=== PATIENT | male | born 1990 | race Caucasian/White ===

== ENCOUNTER 2020-10-20 04:50 | Emergency (ER) | payer OTHER, SELFPAY ==
--- NOTE | ~2020-10-20 | XR_ITS ---
XR lumbar spine 2-3V DATE: 10/20/2020 06:15 INDICATION: Fall in bathtub. Lower back pain. TECHNIQUE: AP, lateral and coned lateral lumbosacral views COMPARISON: None FINDINGS: There is minimal levoscoliosis of the lumbar spine. Normal alignment of the lumbar spine. N o fracture or spondylolisthesis. There is moderate loss of height at L4-5 interspace. Remaining lumbar and lumbosacral interspaces are well preserved. Lumbar pedicles are intact. The sacroiliac joints appear intact. IMPRESSION: Mild levoscoliosis Moderate loss of height at L4-5 interspace No fracture or spondylolisthesis is detected Reviewed, dictated and finalized at location A.
[2020-10-20 04:49] VITALS: BP 133/116; PULSE 113; RESP 18; TEMP 36.3; O2SAT 100
--- NOTE | 2020-10-20 05:07 | ED.GENADULT ---
HPI - General Adult General Chief complaint: Fall Stated complaint: fell in bathtub- 6 hours ago, muscle spasms History of Present Illness HPI narrative: Patient is a 30-year-old male who identifies as female that presents ER after falling in the bathtub and being unable to get herself out. Patient reports she has been having low back pain for several weeks and has had some limitations to mobility because of this. She was bending down in the bathtub and was not strong enough to get back up thus falling onto her back. She did not strike her head or lose consciousness. No new numbness or tingling in the lower extremities. Prior to that she would get occasional radiation down her left leg with some tingling in the toes. She is undergoing physical therapy. She reports she has been seen at an outside hospital with negative x-rays and prescription for NSAIDs and muscle relaxers. Patient was prescribed Flexeril on 08/28/2020 and diazepam on 10/16/2020. Patient reports pain is left low back. No midline discomfort. Was suffering from spasms while at home. Related Data Home Medications Medication Instructions Recorded Confirmed bupropion HCl PO 10/20/20 cyclobenzaprine mg 10/20/20 diazepam 10/20/20 docusate sodium PO 10/20/20 duloxetine mg PO 10/20/20 estradiol mg 10/20/20 gabapentin 10/20/20 spironolactone 10/20/20 valacyclovir 10/20/20 Allergies Allergy/AdvReac Type Severity Reaction Status Date / Time Penicillins Allergy Unknown RASH Verified 10/20/20 05:16 Review of Systems Review of Systems: All systems reviewed & are unremarkable except as noted in HPI and below Constitutional: Constitutional: Denies chills, Denies fever(s) and Reports weakness Gastrointestinal: Gastrointestinal: Denies nausea and Denies vomiting Musculoskeletal: Musculoskeletal: Reports back pain, Denies arthralgias, Denies joint swelling and Reports muscle cramps Neurologic: Denies syncope, Denies focal weakness and Reports numbness (Intermittent) [facility] Past Medical History Medical History (Updated 10/20/20 @ 07:12 by Benny Kearney MD) Depression Fibromyalgia Surgical History Surgical History (Updated 10/20/20 @ 05:29 by Benny Kearney MD) No pertinent past surgical history Social History Social History (Updated 10/20/20 @ 05:29 by Benny Kearney MD) Alcohol intake: current Gender identity (if verbalized by the patient): Female Exam Narrative: GENERAL: Well-appearing, morbidly obese, and in no acute distress. HEAD: Normocephalic, atraumatic. ENT: Mucous membranes moist. CHEST: Clear to auscultation. No respiratory distress. HEART: Tachycardic and regular. Normal peripheral pulses. Back: No midline tenderness of thoracic or lumbar spine. Mild left lumbar paraspinal muscular discomfort without palpable spasm. Square indentations from patient's bath mat going from inferior most aspect of the scapula bilaterally down to the buttock. EXTREMITIES: Normal range of motion. No edema. Sensation intact. SKIN: Warm, dry, no rash. NEURO: Alert and oriented x3. Course Course Emergency Course: Pain improving with Toradol and Valium. Up and ambulatory. Discharge home. Vital Signs Vital signs: Vital Signs Temperature 97.4 F L 10/20/20 04:49 Pulse Rate 113 H 10/20/20 04:49 Respiratory Rate 18 10/20/20 04:49 Blood Pressure 133/116 H 10/20/20 04:49 Pulse Oximetry 100 10/20/20 04:49 Temperature 97.4 F L 10/20/20 04:49 Pulse Rate 111 H 10/20/20 05:50 Respiratory Rate 19 10/20/20 05:50 Blood Pressure 118/74 10/20/20 05:50 Pulse Oximetry 98 10/20/20 05:50 Medical Decision Making Vital Signs Vital Signs: Vital Signs Temperature 97.4 F L 10/20/20 04:49 Pulse Rate 113 H 10/20/20 04:49 Respiratory Rate 18 10/20/20 04:49 Blood Pressure 133/116 H 10/20/20 04:49 Pulse Oximetry 100 10/20/20 04:49 Temperature 97.4 F L 10/20/20 04:49 Pulse Rate 111 H 08
[2020-10-20] MEDS: diazePAM INJ (*CRX) 10 MG/2 ML SYRINGE 5 MG IV PUSH (05:26)
[2020-10-20] MEDS: KETOROLAC 30 MG/ML VIAL (*BKC) IV PUSH (05:26)
[2020-10-20 05:50] VITALS: BP 118/74; PULSE 111; RESP 19; O2SAT 98
--- NOTE | 2020-10-20 07:09 | PC.NURSE ---
pt ambulated w/ walker without difficulty.
== END 2020-10-20 07:46 | disposition home or self-care (01) ==
PROVIDERS: Emergency Provider Emergency Medicine
DX: M62.830 Muscle spasm of back (principal); M79.7 Fibromyalgia; F32.9 Major depressive disorder, single episode, unspecified; W18.2XXA Fall in (into) shower or empty bathtub, initial encounter
CPT/HCPCS: 72100; 96374; 96375; 99284; J1885; J3360

== ENCOUNTER 2022-01-19 13:44 | Emergency (ER) | payer OTHER, SELFPAY ==
[2022-01-19 13:52] VITALS: BP 113/88; PULSE 108; RESP 14; TEMP 36.6; O2SAT 100
--- NOTE | 2022-01-19 16:09 | ED.BACK ---
HPI - Back Pain/Injury General Chief Complaint: Back Pain/Injury Stated Complaint: lower back pain Time Seen by Provider: 01/19/22 15:44 History of Present Illness HPI Narrative: 31-year-old transgender female presenting to the emergency department for evaluation of right hip pain. Patient does have a prior history of pinched nerve/sciatica. She states that she was cleaning hair out of a drain on Thursday when she had onset of the pain. Patient also reports that she has been riding the bus more often and feels that the from the bus has further exacerbated her symptoms. Patient states she does have intermittent numbness to bilateral feet but denies any current numbness. Patient denies any loss of bowel or bladder control. Declines any prior history of neck surgeries. Related Data Home Medications Medication Instructions Recorded Confirmed bupropion HCl 100 mg tablet PO 10/20/20 cyclobenzaprine 10 mg tablet mg 10/20/20 diazepam 5 mg tablet 10/20/20 docusate sodium 100 mg capsule PO 10/20/20 duloxetine 60 mg capsule,delayed mg PO 10/20/20 release estradiol 2 mg tablet mg 10/20/20 gabapentin 300 mg capsule 10/20/20 spironolactone 100 mg tablet 10/20/20 valacyclovir 500 mg tablet 10/20/20 Allergies Allergy/AdvReac Type Severity Reaction Status Date / Time Penicillins Allergy Unknown RASH Verified 10/20/20 05:16 Review of Systems Review of Systems: CONSTITUTIONAL: Denies fever, chills, or sweats. EYES: Denies visual changes, redness, or discharge. ENT: Denies rhinorrhea, congestion, sore throat, or otalgia. CARDIOVASCULAR: Denies chest pain, palpitations, or edema. RESPIRATORY: Denies cough or dyspnea. GASTROINTESTINAL: Denies abdominal pain, nausea, vomiting, or diarrhea. GENITOURINARY: Denies dysuria or hematuria. SKIN: Denies rash or itching. MUSCULOSKELETAL: See HPI NEUROLOGIC: See HPI PMFSH Past Medical History Medical History (Updated 01/19/22 @ 16:16 by Justin Palomares MD) Depression Fibromyalgia Surgical History Surgical History (Updated 10/20/20 @ 05:29 by Benny Kearney MD) No pertinent past surgical history Social History Social History (Updated 10/20/20 @ 05:29 by Benny Kearney MD) Alcohol intake: current Gender identity (if verbalized by the patient): Female Exam Narrative: APPEARANCE: Well appearing, no pain, no distress, well-nourished. HEAD: normocephalic, atraumatic. EYES: PERRLA/EOMI, conjunctivae clear. NOSE: Normal no drainage EARS:TMS clear with good light reflex. THROAT: Pharynx clear, no exudate. NECK: Supple. No adenopathy, no masses. RESPIRATORY: Airway patent, respirations nonlabored. Clear to auscultation bilaterally, no rales, rhonchi, wheezing. CARDIOVASCULAR: Regular rate and rhythm without murmurs rubs or gallops. ABDOMINAL: Soft, nontender, nondistended, normal bowel sounds MUSCULOSKELETAL: Reproducible right lower back tenderness to palpation. NEURO: Alert. Cranial nerves II through XII intact. Grossly intact SKIN: Warm, dry. Normal Color Course Course Emergency Course: Suspect sciatica as the underlying etiology for the patient's symptoms. patient does have diclofenac, gabapentin and muscle relaxants at home. Patient will be prescribed a Medrol Dosepak. Vital Signs Vital signs: Vital Signs Temperature 97.9 F 01/19/22 13:52 Pulse Rate 108 H 01/19/22 13:52 Respiratory Rate 14 01/19/22 13:52 Blood Pressure 113/88 01/19/22 13:52 Pulse Oximetry 100 01/19/22 13:52 Oxygen Delivery Room Air 01/19/22 13:52 Temperature 97.9 F 01/19/22 13:52 Pulse Rate 108 H 01/19/22 13:52 Respiratory Rate 14 01/19/22 13:52 Blood Pressure 113/88 01/19/22 13:52 Pulse Oximetry 100 01/19/22 13:52 Oxygen Delivery Room Air 01/19/22 13:52 Discharge Plan Discharge Clinical Impression: Sciatica Patient Disposition: Home, Self-Care Condition: Stable Instructions: Antibiotic Form, Sciatica (ED) Add
== END 2022-01-19 16:41 | disposition home or self-care (01) ==
PROVIDERS: Emergency Provider Emergency Medicine
DX: M54.31 Sciatica, right side (principal); F32.A Depression, unspecified; M79.7 Fibromyalgia
CPT/HCPCS: 99283

== ENCOUNTER 2024-09-28 09:38 | Outpatient (CLI) | payer OTHER, SELFPAY ==
--- OUTSIDE RECORDS SUMMARY | 2024-09-28 09:58 | XMS_ITS | Referral Summary ---
Author Organization [facility] [address] Address [address] [place] [address] Care Team Providers Care Senior Business Development Analyst Name Role Phone Gurmeet Roland NP Primary Care Provider [phone] Allergies Active Allergy Reactions Criticality Noted Date Comments Penicillins Rash Medium 05/11/[address] (VOLTAREN) 75 mg EC tablet 0 Active DOK 100 mg capsule [address] (CYMBALTA) 30 mg capsule Take 1 capsule (30 mg total) by mouth nightly 0 Active buPROPion SR (Wellbutrin SR) 100 mg 12 hr tablet 1 tablet (100 mg total) Active gabapentin (NEURONTIN) 600 mg tablet Take 1 tablet (600 mg total) by mouth 3 (three) times a day 3 Active lidocaine (XYLOCAINE) 5 % ointment APPLY 1 APPLICATION NEEDED EXTERNALLY TWICE A DAY 3 Active tiZANidine (ZANAFLEX) 4 mg tablet Take by mouth 2 (two) times a day as needed 3 Active Descovy 200-25 mg tablet Take 1 tablet by mouth daily 3 Active diazePAM (VALIUM) 5 mg tablet 1 Active buPROPion (WELLBUTRIN) 100 mg tablet TAKE 1 TABLET BY MOUTH IN THE MORNING AND AFTERNOON [address] (CYMBALTA) 60 mg capsule TAKE 1 CAPSULE BY MOUTH EVERYDAY AT BEDTIME 4 Active progesterone (PROMETRIUM) 200 mg capsule Take 1 tab po daily x 15 days ; do not take for 15 days 30 capsule 6 4 Active spironolactone (ALDACTONE) 100 mg tablet Take 2 tablets (200 mg total) by mouth daily 180 tablet 2 4 Active ergocalciferol (VITAMIN D) 50,000 unit capsule Take 1 capsule (50,000 Units total) by mouth once a week 12 capsule 3 4 Active estradioL (ESTRACE) 2 mg tablet Take 2 tablets (4 mg total) by mouth daily 180 tablet 5 Active Active Problems Problem Noted Date Diagnosed Date Vitamin D deficiency 07/08/2022 Assessment & Plan (07/22/2023 1:05 PM CDT): Update 25 OH vit D Restart ergocalciferol Assessment & Plan (07/08/2022 2:44 PM CDT): Update 25 OH vit D levels Restart Ergocalciferol. [id number] transgender person 10/17/2021 Assessment & Plan (07/22/2023 1:04 PM CDT): Chronic, stable Continue hormone replacement with estradiol and progesterone. Continue aldactone Update lipid profile Assessment & Plan (07/08/2022 2:43 PM CDT): Continue replacement with estradiol and progesterone Continue Aldactone Update BMP Assessment & Plan (10/17/2021 9:47 AM CDT): Continue estrogen replacement with 4 mg of estradiol. Although the role of progesterone is unclear in transgender individuals, especially due to the increased cardiovascular risk seen in postmenopausal women. The patient understands this and she said that she prefers to stay on it since she feels that ite has helped her with breast development. Because there are still some excessive facial her growth, I recommended to increase the dose of the spironolactone to 200 mg daily. Will check potassium levels in 4 weeks Morbid obesity 10/17/2021 Assessment & Plan (07/08/2022 2:45 PM CDT): Pt to continue working on diet Referral for bariatric center at [facility] sent again Assessment & Plan (10/17/2021 9:55 AM CDT): Diet and exercise were discussed. 1200 Calorie diet advised 45-60 min aerobic / resistance exercise most days of the week recommended, although limited in the patient because of her fibromyalgia Bariatric surgery medically indicated , the patient agrees. Referral sent to bariatric center at [facility] Fibromyalgia 03/09/2020 Other insomnia 03/09/2020 KAREN (obstructive sleep apnea) 03/09/2020 Chronic fatigue 03/09/2020 Impacted cerumen, bilateral 11/04/2019 Assessment & Plan (11/04/2019 1:07 PM CDT): Ears cleaned. PRN. Sensorineural hearing loss, bilateral 11/04/2019 Constipation 05/11/2019 Overview (05/11/2019): Added automatically from request for surgery [id number] Assessment & Plan (05/11/2019 3:19 PM CDT): Will start patient on fiber gummies daily and can start colace prn. Pt says stools are always very hard but does have BM twice daily. Rectal pain 05/11/2019 Overview (05/11/2019): Added automatically from request for surgery [id number] Assessment & Plan (05/11/2019 3:22 PM CDT): This occurs even without having BM's. He says it happens almost every night. Will be lying in bed and gets very severe sharp pain in rectum that radiates up into pelvis. Will schedule colonoscopy. Was given lidocaine for pain which says helps somewhat. Will call in more lidocaine cream to use prn. Hemorrhoids 05/11/2019 Assessment & Plan (05/11/2019 3:21 PM CDT): Pt says he has applied prep H on inside of rectum and thought he felt something that he thought was hemorrhoid inside. Unsure if prep H was helping or not. He was given lidocaine for the pain which helps somewhat. Immunizations Immunization Administration Dates Next Due Influenza, Quadrivalent, Martha l Culture-based MDCK, Preservative Free, Antibiotic Free, Intramuscular 03/09/2020 Social History Tobacco Use Types Packs/Day Years Used Date Smoking Tobacco: Never Smokeless Tobacco: Never Tobacco Cessation:Counseling Given: Not Answered PHQ-2 Answer Date Recorded PHQ-2 Total Score (If total score is 3 or more points, staff should administer the PHQ-9) 0 10/17/2021 Personal Safety Answer Date Recorded Getting School Help Needed Not on file 04/24 Sex and Gender Information Value Date Recorded Sex Assigned at Not on file Legal Sex Male 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 Gender Identity Transgender Female 08/12/2021 9: 05 AM CDT Sexual Orientation Not on file Last Filed Vital Signs Vital Sign Reading Time Taken Comments Blood Pressure 100/62 07/22/2023 11:06 AM CDT Pulse 102 07/22/2023 11:06 AM CDT Temperature 36.8 C (98.2 F) 03/09/2020 9:56 AM RESEARCH TEST ENGINE OPERATOR Respiratory Rate 17 07/22/2023 11:06 AM CDT Oxygen Saturation 97% 06/13/2019 10:30 AM CDT Inhaled Oxygen Concentration - - Weight 161 kg (355 lb) 07/22/2023 11:06 AM CDT Height 175.3 cm (5' 9) 07/22/2023 11:06 AM CDT Body Mass Index 52.42 07/22/2023 11:06 AM CDT Plan of Treatment Not on file Insurance [facility] Advance Directives For more information, please contact: [phone] * Full Code (Latest Code Status on File) Date Activated Date Inactivated Comments 06/13/2019 8:31 AM 06/13/2019 2:54 PM * Full Code Date Activated Date Inactivated Comments 06/13/2019 8:31 AM 06/13/2019 8:31 AM Care Teams Senior Business Development Analyst Relationship Specialty Start Date End Date Gurmeet Roland NP PCP - General Pain Management 04/28/19
--- OUTSIDE RECORDS SUMMARY | 2024-09-28 09:58 | XMS_ITS | Patient Health Record ---
Author Organization [facility] Address [address] [place] [address] Care Team Providers Care Coating Supervisor Name Role Phone Fran Elkins Primary Care Provider [phone] Alejandra Kaufman Unavailable [phone] Gurmeet Roland Unavailable [phone] Allergies Allergen (clinical drug ingredient) Drug/Non Drug Allergy documented on EMR Reaction Allergy Type Onset Date Status Penicillin G Benzathine Unknown Drug Allergy Active Reason For Referral Reason Cognitive issues, fi bromyalgia. Diagnosis 1 Cognitive complaints (R41.9) Diagnosis 2 Fibromyalgia (M79.7) Referral Organization [facility] Referring Provider First Name Gurmeet Referring Provider Last Name Luan Referring Provider Speciality [facility] Referred Provider [facility]erred Provider Specialty Neurology General Notes NAN Oakes Stephanie N 11/06/2023 02:36:51 PM >referral has been faxed. Mark was notified of the referral and a letter has also been sent with location/phone information., NAN Oakes Stephanie N 12/01/2023 08:16:45 AM >received notice from [facility] that appointments were scheduled as follows:, Appointment 1 (Cognitive/Memory focused):, January 21, 2024 at 11:00am , Dr. Onelia Mendoza , [address], [address] [address] , Appointment 2 (Fibromyalgia focused):, October 28, 2024 at 09:30am , Dr. Neno Phelps, [address], [address], [place], [place] [address]Violette RN, Stephanie N 12/01/2023 08:17:13 AM >letter mailed to pt with this information Clinical Notes [facility], [facility] NZaheer Argueta [facility], [address] , [place] [address], , Referral Priority Routine Reason KAREN, on CPAP, needs new equipment. Diagnosis 1 Sleep apnea (G47.30) Referral Organization [facility] Referring Provider First Name Fran Referring Provider Last Name Severo Referring Provider Speciality Internal M edicine Referred Provider [facility], . Referred Provider Specialty Sleep Medici ne General Notes NAN Oakes Stephanie N 01/06/2024 09:18:12 AM >[facility] website indicates that [facility] in network., NAN Oakes Stephanie N 01/06/2024 09:27:20 AM >No previous CPAP titration notes/information are available. Referral faxed.Violette RN, Stephanie N 01/06/2024 01:55:42 PM >referral was successfully faxed. Portal message/text message sent and letter mailed with referral details. See logs.Rene RN, Lara Louise 06/02/2024 10:27:39 AM >Pt verbalized he did not go to referral. Refaxing referral to [facility]., Archie MONTANA, Alana Mckenzie 08/11/2024 01:24:22 PM >Client contacted and reports she had an appointment on 08/01/24 Referral location contacted and they report the report is not complete but it will be faxed once completed Clinical Notes [facility] , [place], [place] [address], , Referral Priority Routine Reason Therapy Diagnosis 1 Depressive disorder (F32.9) Referral Organization [facility] Referring Provider First Name Alejandra Referring Provider Last Name Mandeep Referring Provider Speciality Psychiatry Referred Provider Specialty Behavioral H ealth General Notes Alejandra Kaufman 08/2023 01:46:42 PM > Please refer for therapy services to work on coping mechanisms and mental health disorders with client. Thank you. Clinical Notes Johanne Herrera 02:52:37 PM > various contact notes from Javier FORD Heidi L 01/26/2024 03:18:52 PM > called left Javier canalesJohanne 02/04/2024 01:48:58 PM > called left Javier canales Hecydney Gerard 02/10/2024 11:02:46 AM > unable to reach, letter sent with information about therapy Referral Priority Routine Reason PREFERS [facility]EV[facility] SLEEP APNEA AND 10 YEAR OLD CPAP MOTOR STOPPED WORKING Diagnosis 1 Sleep apnea (G47.30) Referral Organization [facility] Referring Provider First Name Fran Referring Provider Last Name Severo Referring Provider Speciality Internal M edicine Referred Provider Specialty Sleep Medici ne General Notes Bull Génesis L 08/2024 04:01:51 PM >Referral has been sent to [facility] for [facility]. Letter to pt. Clinical Notes [facility], [facility] [place] [address], ph: [phone], fax: [phone] Referral Priority Urgent Medications Medication SIG (Take, Route, Frequency, Duration) Notes Start Date End Date Status Cetirizine HCl 10 MG 1 capsule Orally On ce a day Active tiZANidine HCl 4 MG TAKE 1 TABLET BY LEAH TH TWICE A DAY As NEEDED; Duration: 30 days Active Lidocaine 5 % APPLY 1 APPLICATION EXTERNALLY TWICE A DAY NEEDED; Duration: 30 Active Vitamin D (Ergocalciferol) 1.25 MG (63018 UT) 1 capsule Orally once a week Active Diclofenac Sodium 75 MG TAKE 1 TABLET BY MOUTH TWICE A DAY; Duration: 30 Active Docusate Sodium 100 MG 1 capsule as need ed Once a day; Duration: 30 days Active DULoxetine HCl 60 MG 1 capsule Orally On ce a day at night; Duration: 90 days Active buPROPion HCl 100 MG 1 tablet Orally Onc e in the morning AND once in the afternoon; Duration: 90 days Active DULoxetine HCl 30 MG 1 capsule Orally On ce a day at night; Duration: 90 days Active Gabapentin 600 MG TAKE 1 TABLET BY LEAH TH THREE TIMES A DAY; Duration: 30 Active Social History Tobacco Use: Social History Observation Description Date Details (start date - stop date) Never Smoker NA - NA Sex Assigned At : Social History Observation Description Sex Assigned At Male Alcohol Screen (Audit-C) Question Answer Notes Did you have a drink containing alcohol in the p ast year? Yes Tobacco Control (Standard) Question Answer Notes Tobacco use: Nonsmoker Problems Problem Type SNOMED Code ICD Code Onset Dates Problem Status W/U Status Risk Notes Problem Morbid obesity (disorder) (398048005) Morbid (severe) obesity due to excess calories (E66.01) Active confirmed Problem Chronic pain (42969875) Other chronic pain (G89.29) Active confirmed Problem Sciatica (10029149) Lumbago with sciatica, right side (M54.41) Active confirmed Problem Sciatica (62063618) Lumbago with sciatica, left side (M54.42) Active confirmed Problem Fibromyalgia (793432236) Fibromyalgia (M79.7) Active confirmed Problem Irritable bowel syndrome (17745441) IBS (irritable bowel syndrome) (K58.9) Active confirmed Problem Sleep apnea (13809774) Sleep apnea (G47.30) Active confirmed Problem Depressive disorder (37645874) Depressive disorder (F32.9) Active confirmed Problem Overweight (304464316) Over weight (E66.3) Active confirmed Problem Mild recurrent major depression (30462926) Mild episode of recurrent major depressive disorder (F33.0) 0 Active confirmed Problem Medication monitoring (regime/therapy) (619011539) Encounter for medication monitoring (Z51.81) Active confirmed Problem Constipation (36142769) Constipation, unspecified constipation type (K59.00) Active confirmed Problem Sleep apnea (15372320) Sleep apnea, unspecified type (G47.30) Active confirmed Problem Vitamin D deficiency (38232759) Low vitamin D level (E55.9) Active confirmed Problem Coccydynia (70863919) Coccydynia (M53.3) Active confirmed Problem Body mass index 40+ - morbidly obese (362954210) Body mass index (BMI) 50.0-59.9, adult (Z68.43) Active confirmed Problem Transsexual (finding) (154941087) Trans-sexualism (F64.0) Active confirmed Vital Signs Heart Rate 117 /min 06/06/2024 Respiratory Rate 16 /min 06/06/2024 Oximetry 98 % 06/06/2024 Blood pressure diastolic 70 mm Hg 06/06/2024 Height 69 in 06/06/2024 Blood pressure systolic 130 mm Hg 06/06/2024 Weight 362.2 lbs 06/06/2024 BMI 53.48 kg/m2 06/06/2024 Encounters Encounter Location Date Provider Diagnosis [address] [place] [address] 12/15/2023 Gurmeet Roland Lumbago with sciatica, left side M54.42 ; Morbid (severe) obesity due to excess calories E66.01 and Nutritional counseling Z71.[address] [place] [address] 12/17/2023 Alejandra Kaufman Depressive disorder F32.9 [facility] [address] [place] [address] 04/01/2024 Fran Elkins Coccydynia M53.[address] [place] [address] 06/06/2024 Fran Elkins Fibromyalgia M79.7 ; Sleep apnea G47.30 and Over weight E66.[address] [place] [address] 06/08/2024 Alejandra Kaufman Depressive disorder F32.9 [facility] [address] [place] [address] 09/30/2023 Gurmeet Roland [address] [address] 11/05/2023 Gurmeet Roland Fibromyalgia M79.7 and Cognitive complaints R41.9 [facility] [address] [place] [address] 12/08/2023 Gurmeet Roland [address] [place] [address] 12/29/2023 Gurmeet Roland [address] [place] [address] 05/30/2024 Alejandra Kaufman Depressive disorder F32.[address] [address] 05/30/2024 Fran Elkins [address] [address] 07/01/2024 Fran Elkins [facility] [address] [place] [address] 07/04/2024 Fran Elkins [facility] [address] [place] [address] 07/06/2024 Fran Elkins [address] [address] 08/19/2024 Fran Elkins [address] [address] 08/22/2024 Fran Elkins [address] [address] 12/18/2023 Gurmeet Roland [address] [address] 12/21/[address] [address] 12/31/2023 Gurmeet Roland Sleep apnea, unspecified type G47.30 and Depressive disorder F32.[address] [address] 01/13/2024 Alejandra Kaufman [address] [address] 06/01/2024 Fran Elkins [address] [address] 07/04/2024 Fran Elkins [address] [address] 08/19/2024 Alejandra Kaufman Assessments Encounter Date Diagnosis (ICD Code) Assessment Notes Treatment Notes Treatment Clinical Notes Section Notes 04/01/2024 Coccydynia (ICD-10 - M53.3) USE PRN NSAIDS (HAS AT HOME), HEAT OR ICE, AVOID PRESSURE TO AREA, AMBULATION AND GENTLE STRETCHES SEVERAL TIMES PER DAY. 12/31/2023 Depressive disorder (ICD-10 - F32.9) 12/31/2023 Sleep apnea, unspecified type (ICD-10 - G47.30) 12/17/2023 Depressive disorder (ICD-10 - F32.9) Standish agreement to continue current regimen. Reasons, potential benefits, potential risks, interactions and side effects of all medications were discussed. The Patient/Guardian asked appropriate questions, appeared to understand the answers, and decided to accept the treatment and continue being followed. Alternatives and expected course without treatment were reviewed. The Patient/Guardian is aware of the need to contact the office or return for an earlier appointment if any problems or concerns arise. May also contact the 24-hour crisis hotline (R), refer to the closest emergency room or call 911 if new symptoms arise of existing symptoms worsen. The Patient/Guardian is aware that this would apply to symptoms like: suicidal ideation, homicidal ideation, high risk behaviors, manic symptoms, psychotic symptoms, physical symptoms, or any other symptoms that may be dangerous to self or others. Greater than 50% of time spent on coordination and counseling where psychopharmacology as well as psychotherapeutic interventions were discussed along with review of treatments in the past. Education provided concerning need for adequate hydration. Patient/Guardian verbalized understanding of education, treatment plan and follow up. This session was completed telephonically with client/parental/guard jamal consent: Unable to determine movement status, assess appearance, affect, AIMS, or vital signs. 12/15/2023 Morbid (severe) obesity due to excess calories (ICD-10 - E66.01) 12/15/2023 Lumbago with sciatica, left side (ICD-10 - M54.42) 06/08/2024 Depressive disorder (ICD-10 - F32.9) Standish agreement to continue current regimen. Reasons, potential benefits, potential risks, interactions and side effects of all medications were discussed. The Patient/Guardian asked appropriate questions, appeared to understand the answers, and decided to accept the treatment and continue being followed. Alternatives and expected course without treatment were reviewed. The Patient/Guardian is aware of the need to contact the office or return for an earlier appointment if any problems or concerns arise. May also contact the 24-hour crisis hotline (R), refer to the closest emergency room or call 911 if new symptoms arise of existing symptoms worsen. The Patient/Guardian is aware that this would apply to symptoms like: suicidal ideation, homicidal ideation, high risk behaviors, manic symptoms, psychotic symptoms, physical symptoms, or any other symptoms that may be dangerous to self or others. Greater than 50% of time spent on coordination and counseling where psychopharmacology as well as psychotherapeutic interventions were discussed along with review of treatments in the past. Education provided concerning need for adequate hydration. Patient/Guardian verbalized understanding of education, treatment plan and follow up. This session was completed telephonically with client/parental/guard jamal consent: Unable to determine movement status, assess appearance, affect, AIMS, or vital signs. 06/06/2024 Fibromyalgia (ICD-10 - M79.7) 06/06/2024 Sleep apnea (ICD-10 - G47.30) 05/30/2024 Depressive disorder (ICD-10 - F32.9) 11/05/2023 Fibromyalgia (ICD-10 - M79.7) 11/05/2023 Cognitive complaints (ICD-10 - R41.9) 06/06/2024 Over weight (ICD-10 - E66.3) 12/15/2023 Nutritional counseling (ICD-10 - Z71.3) Plan Of Treatment No Information Insurance Providers Payer Name Payer Address Payer Phone Subscriber Number Group Number Insured Name Patient Relationship to Insured Coverage Start Date Coverage End Date [facility] Attn Claims Department [address] [place] [phone] [id number] Mark Knapp Self - patient is the insured 0 [facility] Att[facility] Claims Department [address] [place] [phone] [id number] Mark Knapp Self - patient is the insured 0 [facility] [employer] Attn Claims Department [address] [place] [address] [phone] [id number] Mark Knapp Self - patient is the insured 09/01/202 0 Medical (General) History Medical History History ICD Code Constipation, unspecified constipation t ype K59.00 Trans-sexualism F64.0 Fibromyalgia M79.7 IBS (irritable bowel syndrome) K58.9 Sleep apnea G47.30 Surgical History Surgery Date(Month/Year) Hospitalization History Reason Date(Month/Year) ER visit for pain 2020 ER visit pain [facility] 12/2021
--- OUTSIDE RECORDS SUMMARY | 2024-09-28 09:59 | XMS_ITS | Clinical Summary ---
Author Organization [facility] Address [address] [place] [address] Care Team Providers Care Summer Child Caregiver Name Role Phone Gurmeet Roland NP Primary Care Provider [phone] Allergies Active Allergy Reactions Criticality Noted Date [...] 25 [place] vit D levels Restart Ergocalciferol. [id number] transgender person 10/17/2021 Assessment & Plan (07/22/2023 [...] on diet Referral for bariatric center at [facility] sent again Assessment & Plan (10/17/2021 9:55 AM CDT): Diet and exercise were discussed. 1200 Calorie diet advised 45-60 min aerobic / resistance exercise most days of the week recommended, although limited in the patient because of her fibromyalgia Bariatric surgery medically indicated , the patient agrees. Referral sent to bariatric center at [facility] Fibromyalgia 03/09/2020 Other insomnia 03/09/2020 KAREN (obstructive sleep apnea) 03/09/2020 Chronic fatigue 03/09/2020 Impacted cerumen, bilateral 11/04/2019 Assessment & Plan (11/04/2019 1:07 PM CDT): Ears cleaned. PRN. Sensorineural hearing loss, bilateral 11/04/2019 Constipation 05/11/2019 Overview (05/11/2019): Added automatically from request for surgery [id number] Assessment & Plan (05/11/2019 3:19 PM CDT): Will start patient on fiber gummies daily and can start colace prn. Pt says stools are always very hard but does have BM twice daily. Rectal pain 05/11/2019 Overview (05/11/2019): Added automatically from request for surgery [id number] Assessment & Plan (05/11/2019 3:22 PM CDT): [...] MDCK, Preservative Free, Antibiotic Free, Intramuscular 03/09/2020 Surgical History Surgery Date Site/Laterality Comments COLONOSCOPY 06/13/2019 Medical History Medical History Date Comments Sleep apnea Family History Medical History Relation Name Comments Heart disease Father Diabetes Mother Relation Name Status Comments Father Mother Alive Social History Tobacco Use Types Packs/Day Years [...] on file Legal Sex Male 9:10 PM CLAIMS SORTER Gender Identity Transgender Female 08/12/2021 9: 05 AM CDT Sexual Orientation Not on file Obstetrics History Last Filed Vital Signs Vital Sign Reading Time Taken Comments Blood Pressure 100/62 07/22/2023 11:06 AM CDT Pulse 102 07/22/2023 11:06 AM CDT Temperature 36.8 C (98.2 F) 03/09/2020 9:56 AM CLAIMS SORTER Respiratory Rate 17 07/22/2023 11:06 AM CDT Oxygen Saturation 97% 06/13/2019 10:30 AM CDT Inhaled Oxygen Concentration - - Weight 161 kg (355 lb) 07/22/2023 11:06 AM CDT Height 175.3 cm (5' 9) 07/22/2023 11:06 AM CDT Body Mass Index 52.42 07/22/2023 11:06 AM CDT Plan of Treatment Health Maintenance Due Date Last Done Comments Hepatitis C Screening 1988 DTaP/Tdap/Td Vaccine (1 - Tdap) 1999 Varicella Vaccines (1 of 2 - 13+ 2-dose series) 2001 Hepatitis B Screening 2006 Regular Well Visit/Exam 18-64 2006 HPV Vaccines (1 - 3-dose SCD M series) 2015 Depression Screening 10/17/2022 10/17/2021, 05/11/2019, 05/11/2019 Influenza Vaccine (#1) 2024 , 11/30/2018 Pneumococcal vaccine <65 Aged Out No longer eligible based on patient's age to complete this topic Insurance [facility] Advance Directives For more information, please contact: [phone] * Full Code (Latest Code Status on File) Date Activated Date Inactivated Comments 06/13/2019 8:31 AM 06/13/2019 2:54 PM * Full Code Date Activated Date Inactivated Comments 06/13/2019 8:31 AM 06/13/2019 8:31 AM Care Teams Summer Child Caregiver Relationship Specialty Start Date End Date Gurmeet Roland NP PCP - General Pain Management 04/28/19
--- OUTSIDE RECORDS SUMMARY | 2024-09-28 09:59 | XMS_ITS ---
Author Organization [facility] Address [address] [place] [address] Care Team Providers Care Explosive Specialist Name Role Phone Fran Elkins Primary Care Provider MandeepAlejandra covarrubias Unavailable [phone] REASON FOR VISIT Pt needs to talk about her sleep study. Medications Medication SIG (Take, Route, Frequency, Duration) Notes Start Date End Date Status DULoxetine HCl 60 MG 1 capsule Orally On ce a day at night; Duration: 90 days Active tiZANidine HCl 4 MG TAKE 1 TABLET BY LEAH TH TWICE A DAY As NEEDED; Duration: 30 days Active buPROPion HCl 100 MG 1 tablet Orally Onc e in the morning AND once in the afternoon; Duration: 90 days Active DULoxetine HCl 30 MG 1 capsule Orally On ce a day at night; Duration: 90 days Active Gabapentin 600 MG TAKE 1 TABLET BY LEAH TH THREE TIMES A DAY; Duration: 30 Active Cetirizine HCl 10 MG 1 capsule Orally On ce a day Active Lidocaine 5 % APPLY 1 APPLICATION EXTERNALLY TWICE A DAY NEEDED; Duration: 30 Active Vitamin D (Ergocalciferol) 1.25 MG (62109 UT) 1 capsule Orally once a week Active Diclofenac Sodium 75 MG TAKE 1 TABLET BY MOUTH TWICE A DAY; Duration: 30 Active Docusate Sodium 100 MG 1 capsule as need ed Once a day; Duration: 30 days Active Social History Sex Assigned At : Social History Observation Description Sex Assigned At Male Encounters Encounter Location Date Provider Diagnosis [address] [place] [address] 08/25/2024 Fran Elkins Plan Of Treatment No Information Progress Notes * Delilah KNAPPOB:1990 (34 yo M)Acc No.[id number]:08/25/2024 UNLOCKED PROGRESS NOTE Progress Notes Patient: Mark DALEY Provider: Jonah Elkins :1990 A ge:34 Y S ex:Male(T) Date:08/25/2024 Address:[address] [place], [place] [id number] Subjective: * Chief Complaints: * 1 . Pt needs to talk about her sleep study.. * Medical History: * Medications: T aking Cetirizine HCl 10 MG Capsule 1 capsule Orally Once a day , Taking Vitamin D (Ergocalciferol) 1.25 MG (90355 UT) Capsule 1 capsule Orally once a week , Taking Lidocaine 5 % Ointment APPLY 1 APPLICATION EXTERNALLY TWICE A DAY NEEDED , Taking Docusate Sodium 100 MG Capsule 1 capsule as needed Once a day , Taking Diclofenac Sodium 75 MG Tablet Delayed Release TAKE 1 TABLET BY MOUTH TWICE A DAY , Taking tiZANidine HCl 4 MG Tablet TAKE 1 TABLET BY MOUTH TWICE A DAY As NEEDED , Taking DULoxetine HCl 60 MG Capsule Delayed Release Particles 1 capsule Orally Once a day at night , Taking DULoxetine HCl 30 MG Capsule Delayed Release Particles 1 capsule Orally Once a day at night , Taking buPROPion HCl 100 MG Tablet 1 tablet Orally Once in the morning AND once in the afternoon , Taking Gabapentin 600 MG Tablet TAKE 1 TABLET BY MOUTH THREE TIMES A DAY Objective: * Vitals: Assessment: Plan: * Treatment: * * Electronic signature of Alen Elkins , [id number] on 09/28/2024 at 09:58 AM CDT Sign off status: Pending * Provider: Jonah Elkins Date: 08/25/2024 Generated for Erich ramey/[place]/Rubi on: 09/28/2024 09:58 AM CDT
--- OUTSIDE RECORDS SUMMARY | 2024-09-28 09:59 | XMS_ITS | Clinical Summary ---
Author Organization [facility] [employer] Address [address] [address] Care Team Providers Care Supervisor Assembly Room Name Role Phone Gurmeet Roland APRN-CRUTCHER HELPER Primary Care Provide r Source Comments [facility],non-owned Affiliates and Associated Physician Practices is amultiple site organization consisting of ambulatory clinics and hospital sitesin [place], [place], [place] and [place]. This disclosure is being madepursuant to the Care Everywhere program and may not contain all information available regarding this patient. Last updated 17.[facility] Allergies Active Allergy Reactions Criticality Noted Date Comments Penicillins Rash Medium 02/22/2019 Medications * This document contains information received from the source organization and may not represent a complete record from that organization. * Be aware that medications may not be up to date on this document. Alwaysverify current medications with the patient. GABAPENTIN PO Take 300 mg by mouth 3 times daily Active DULoxetine HCl (CYMBALTA PO) Take 90 mg by mouth once daily Active DICLOFENAC PO Take 75 mg by mouth 2 times daily as needed Active docusate sodium (DOK) 100 MG capsule Take 100 mg by mouth 2 times daily 04/27/2019 Active buPROPion (WELLBUTRIN) 100 MG tablet 02/06/2020 Activ e diazePAM (VALIUM) 5 MG tablet 12/04/2020 Active vitamin D, ergocalciferol, (DRISDOL) 1.25 MG (01638 UT) capsule 10/19/2020 Active estradiol (ESTRACE) 2 MG tablet TAKE 1 TABLET BY MOUTH TWICE A DAY 180 tablet 3 05/06/2021 Active spironolactone (ALDACTONE) 50 MG tablet Take 1 (one) tablet by mouth 2 times daily 90 tablet 5 05/09/2021 Active Progesterone 200 MG capsuleIndicati ons:Transgender TAKE 1 (ONE) CAPSULE BY MOUTH AT BEDTIME DAY 1 TO 10 30 capsule 5 09/19/2021 Active Active Problems Problem Noted Date Diagnosed Date MDD (major depressive disord er), recurrent, in full remission 05/12/2020 Anxiety disorder, unspecified 05/12/2020 Family History Medical History Relation Name Comments None Known Brother Dementia Father Diabetes; unknown type Father None Known Maternal Grandfather None Known Maternal Grandmother Diabetes; unknown type Mother None Known Other None Known Paternal Grandfather None Known Paternal Grandmother Thyroid Disease Sister Alcohol abuse Neg Hx Asthma Neg Hx Depression Neg Hx Drug Abuse Neg Hx Glaucoma Neg Hx Gout Neg Hx Leukemia Neg Hx Migraine Neg Hx Multiple Sclerosis Neg Hx Other Neg Hx Relation Name Status Comments Brother Father Alive Maternal Grandfather Maternal Grandmother Mother Alive Other Paternal Grandfather Paternal Grandmother Sister Alive Social History Tobacco Use Types Packs/Day Years Used Date Smoking Tobacco: Never Smokeless Tobacco: Never Alcohol Use Standard Drinks/Week Comments Yes 2 (1 standard drink = 0.6 oz pur e alcohol) 1-2 drinks a week Sex and Gender Information Value Date Recorded Sex Assigned at Male 01/18/2021 11:17 AM VAMP STRAP IRONER Legal Sex Male 3:17 AM VAMP STRAP IRONER Gender Identity Female 01/18/2021 11:17 AM VAMP STRAP IRONER Sexual Orientation Bisexual 01/18/2021 11 :17 AM VAMP STRAP IRONER Last Filed Vital Signs Vital Sign Reading Time Taken Comments Blood Pressure 136/64 12/13/2020 1:21 PM CDT Pulse 64 12/13/2020 1:21 PM CDT Temperature 36.6 C (97.8 F) 12/13/2020 1:21 PM CDT Respiratory Rate 16 02/22/2019 2:53 PM VAMP STRAP IRONER Oxygen Saturation 98% 12/13/2020 1:21 PM CDT Inhaled Oxygen Concentration - - Weight 192.4 kg (424 lb 3.2 oz) 12/13/2020 1:21 PM CDT Height 175.3 cm (5' 9) 12/13/2020 1:21 PM CDT Body Mass Index 62.64 12/13/2020 1:21 PM CDT Plan of Treatment Health Maintenance Due Date Last Done Comments HIV SCREENING 2003 HEPATITIS C SCREENING 03/14/2006 DTAP/TDAP/TD VACCINES (1 - Tdap) 2007 HEPATITIS B VACCINE (1 of 3 - 19+ 3-dose series) 2007 HPV VACCINE (1 - 3-dose SCDM series) 2015 COVID-19 VACCINE (1 - 2023-2 5 season) 2023 DEPRESSION SCREENING 03/02/2024 INFLUENZA VACCINE (#1) 2024 03/09/2020 ZOSTER VACCINE (1 of 2) 2038 HIB VACCINE Aged Out No longer eligi ble based on patient's age to complete this topic MENINGOCOCCAL (Group B) VACC INE SHARED DECISION-MAKING Aged Out No longer eligibl e based on patient's age to complete this topic MENINGOCOCCAL GROUPS A/C/Y/W VACCINE Aged Out No longer eligible b ased on patient's age to complete this topic PNEUMOCOCCAL VACCINE Aged Out No long er eligible based on patient's age to complete this topic Insurance MEDICAID - OUT OF STATE Care Teams Supervisor Assembly Room Relationship Specialty Start Date End Date Gurmeet Roland APRN-CRUTCHER HELPER PCP - General 04/29/19
[2024-10-18 16:24] VITALS: BMI 50.2
--- NOTE | 2024-10-18 16:24 | WPDSLEEPSTUD ---
Sleep Study Date of Study: 09/28/24 Ordering Provider: ROSALINO Kulkarni Interpreting Physician: Cat Geller DO Sleep Study Type: Split Polysomnogram Height: 1.75 m Weight: 154.221 kg Body Mass Index: 50.2 Neck Circumference (inches): 18 [place]: 4 Reason for Sleep Study Needed an updated sleep study to get new CPAP equipment Sleep History The patient is a 34-year-old female who had a sleep study ordered by the pulmonary group for evaluation of sleep apnea. The patient was previously diagnosed with sleep apnea and has been on CPAP for 10 years. She stopped using CPAP a few months ago when her machine malfunctioned. She denies awakening from sleep short of breath. She rarely awakens at night with heartburn, belching, or a cough. She frequently snores, and it is loud enough that others complain. She rarely has trouble sleeping when she has a cold. She denies waking up gasping for air throughout the night. She occasionally has breathing problems at night observed by herself or others. She rarely sweats excessively at night. She denies having heart palpitations or irregular heartbeats during the night. She frequently falls asleep during the day, but never while driving. She denies sleep paralysis, cataplexy, and hypnagogic/hypnopompic hallucinations. She frequently has trouble at school or work due to sleepiness. She denies feeling afraid of going to sleep. She rarely has nightmares. She occasionally remembers her dreams. She denies having thoughts racing through her mind. She occasionally feels sad, depressed, and anxious. She denies having muscular tension. She denies noticing parts of her body jerk. She denies kicking during the night. She denies having crawling and aching feelings in her legs and denies having leg pain during the night. She denies grinding her teeth during sleep and denies awakening with morning jaw pain. She is occasionally bothered by pain during the day, but rarely awakened by pain during the night. She frequently wakes up feeling stiff in the morning. She occasionally wakes up with sore or achy muscles. She occasionally wakes up with pain in the neck, spine, and other joints. She goes to bed at 11 p.m. on weekdays and at 10 p.m. on the weekends. It takes her 3 hours to fall asleep. She wakes up twice throughout the night to urinate and is able to fall back asleep within 20 minutes. She wakes up at 10 a.m. every morning. She typically gets 7 hours of sleep per night. She will stay in bed for 1 hour after waking up in the morning. She currently lives with her partner and their best friend. She denies consuming any caffeinated beverages within 2 hours of bedtime. She denies engaging in physical exercise before bedtime. She denies reading and watching television before falling asleep. She will take naps in the afternoon or the evening, but they are not refreshing. She consumes 1 caffeinated beverage per day. She rarely consumes alcoholic beverages. She denies tobacco and recreational drug use. [facility] Past Medical History Medical History Depression Fibromyalgia Surgical History Surgical History No pertinent past surgical history Social History Social History Smoking status: Never smoker Alcohol intake: current Gender identity (if verbalized by the patient): Female Medications Home Medications ?Medication ?Instructions ?Recorded ?Confirmed ?Type bupropion HCl 100 mg tablet PO 10/20/20 08/01/24 History docusate sodium 100 mg capsule PO 10/20/20 08/01/24 History duloxetine 60 mg capsule,delayed mg PO 10/20/20 08/01/24 History release estradiol 2 mg tablet mg 10/20/20 08/01/24 History emtricitabine 200 mg-tenofovir tablet PO 10/12/24 History alafenamide fumarate 25 mg tablet (Descovy) gabapentin 600 mg tablet mg 10/12/24 History ofloxacin 0.3 % ear drops 5 drp LEFT EAR BID 10 days #10 mL 10/12/24 Rx progesterone micronized 200 mg mg 10/12/24 History capsule tizanidine 4 mg tablet mg 10/12/24 History Sleep Procedure A full night split study using the [employer] SleepGennio multi-channel system recorded the standard physiologic parameters including EEG, EOG, submentalis EMG, anterior tibialis EMG, EKG, body position, nasal and oral airflow using nasal pressure sensor and thermistor.? Respiratory parameters of chest and abdominal movements were recorded with Respiratory Inductance Plethysmography belts. Oxygen saturation was recorded by pulse oximetry. Video monitoring was also performed. Sleep stages, periodic limb movements, and EEG arousals were scored in 30 second epochs according to the criteria of the AASM Scoring Manual. The Apnea-Hypopnea Index was calculated using [facility] guidelines for definition of hypopnea with 4% O2 desaturations while scoring respiratory events. Sleep Architecture During the diagnostic portion of the study, the total recording time was 145.5 minutes. The total sleep time was 132.5 minutes. Sleep latency was 7.0 minutes.? REM sleep was not achieved during this portion of the study. Sleep Efficiency was 91.1%. The patient had 2 awakenings for an awakening index of 0.9. Wake after sleep onset time was 6.0 minutes. The patient spent 6.5 minutes, 4.9% of total sleep time in Stage N1. The patient spent 15.5 minutes, 11.7% in Stage N2. The patient spent 110.5 minutes, 83.4% in Stage N3. The patient spent 0.0 minutes, 0.0% in Stage REM sleep. At 01:32:43 AM the patient was placed on PAP treatment and was titrated at pressures ranging from 5 cm H20 up to 14 cm H20. During the treatment portion of the study, the total recording time was 278.0 minutes.? The total sleep time was 256.5 minutes. Sleep latency was 7.0 minutes. REM latency was 143.0 minutes. Sleep Efficiency was 92.3%. Wake after Sleep Onset time was 15.0 minutes. The patient spent 20.5 minutes, 8.0% of total sleep time in Stage N1. The patient spent 199.0 minutes, 77.6% in Stage N2. The patient spent 7.0 minutes, 2.7% in Stage N3. The patient spent 30.0 minutes, 11.7% in Stage REM. Respiratory Analysis During the diagnostic portion of the study, the patient had 85 hypopneas and 86 obstructive apneas for an overall Apnea Hypopnea Index of 77.4 events per hour. The REM Apnea Hypopnea Index was 0. The NREM Apnea Hypopnea Index was 77.4. The patient had a Central Apnea Hypopnea Index of 0. There was no evidence of Champ-[place] Respirations. During the treatment portion of the study, the patient had 40 hypopneas, 3 obstructive apneas and 6 central apneas for an overall Apnea Hypopnea Index of 11.5 events per hour. The REM Apnea Hypopnea Index was 10.0. The NREM Apnea Hypopnea Index was 11.7. The patient had a Central Apnea Hypopnea Index of 1.4. There was no evidence of Champ-Bon[place] Respirations. The patient was started on CPAP 5 cm H2O and titrated to CPAP 14 cm H2O due to hypopneas. The patient was able to fall asleep starting on CPAP 5 cm H2O. The patient was able to achieve REM sleep starting on CPAP 13 cm H2O. On CPAP 13 cm H2O, the patient spent 58.5 minutes in NREM and 30 minutes in REM with 14 hypopneas, resulting in an AHI of 9.5. On CPAP 14 cm H2O, the patient spent 32.5 minutes in NREM with 2 hypopneas, resulting in an AHI of 3.7. The patient had a sleep efficiency of 93.2% on 13 cm H2O and 97% on 14 cm H2O. Arousals During the diagnostic portion of the study, there were a total of 24 arousals for an arousal index of 10.9.? There were 4 respiratory arousals for an index of 1.8. There were 0 periodic limb movement arousals for an index of 0.? There were 7 isolated limb movement arousals for an index of 3.2. There were 13 spontaneous arousals for an index of 5.9. During the treatment portion of the study, there were a total of 96 arousals for an index of 22.5.? There were 4 respiratory arousals for an index of 0.9. There were 29 periodic limb movement arousals for an index of 6.8.? There were 31 isolated limb movement arousals for an index of 7.3. There were 34 spontaneous arousals for an index of 8.0. Periodic Limb Movements During the diagnostic portion of the study, the patient had 10 isolated limb movements with an index of 4.5. The patient had 0 periodic limb movements with an index of 0. The patient had a total of 10 limb movements with a total limb movement index of 4.5. During the treatment portion of the study, the patient had 47 isolated limb movements with an index of 11.0. The patient had 56 periodic limb movements with an index of 13.1. The patient had a total of 103 limb movements with a total limb movement index of 24.1. Oximetry Data During the diagnostic portion of the study, the patient had an average oxygen saturation of 95.1% in wake with a minimum oxygen saturation of 89% and a maximum oxygen saturation of 99%. The patient had an average oxygen saturation of 92.3% in sleep with a minimum oxygen saturation of 82.0% and a maximum oxygen saturation of 99.0%. The patient had 219 oxygen desaturations resulting in an Oxygen Desaturation Index of 99.2. The patient spent 10.9 minutes, 7.5% of total sleep time with an oxygen saturation less than 88%. During the treatment portion of the study, the patient had an average oxygen saturation of 95.2% in wake with a minimum oxygen saturation of 88.0% and a maximum oxygen saturation of 98.0%. The patient had an average oxygen saturation of 95.1% in sleep with a minimum oxygen saturation of 89.0% and a maximum oxygen saturation of 99.0%. The patient had 87 oxygen desaturations resulting in an Oxygen Desaturation Index of 20.4. The patient spent 0.1 minutes of total sleep time with an oxygen saturation less than 88%. Snoring Profile Loud snoring was present in the baseline portion of the study. The snoring resolved once the patient was titrated to CPAP 12 cm H2O. Cardiac Profile The EKG lead showed normal sinus rhythm. No arrhythmias or premature beats were seen. During the diagnostic portion of the study, the average pulse rate was 85.9 bpm.? The minimum pulse rate was 72.0 bpm. The maximum pulse rate was 100.0 bpm. During the treatment portion of the study, the average pulse rate was 79.3 bpm.? The minimum pulse rate was 60.0 bpm. The maximum pulse rate was 97.0 bpm. EEG Profile No signs of seizure activity seen. Assessment and Plan Assessment and Plan (1) Obstructive sleep apnea: Code(s): G47.33 - Obstructive sleep apnea (adult) (pediatric) Status: Acute Assessment and Plan: In the baseline portion of the study, the patient had an overall AHI of 77.4 with desaturation down to 82%. This is consistent with extremely severe sleep apnea. The patient was started on CPAP 5 cm H2O and titrated to CPAP 14 cm H2O due to hypopneas. The patient's sleep apnea resolved on the final pressure setting in the supine position. I recommend that the patient be prescribed CPAP 14 cm H2O, size large Resmed AirTouch F20 full face mask, CPAP filters/tubing and heated humidity. This should be used with all episodes of sleep.? Compliance should be reviewed within 31-90 days of starting therapy for usage greater than 4 hours per night greater than 70% of the nights. The patient should be asked about symptoms such as?excessive daytime sleepiness, quality of sleep, decreased nocturia, increased?mental functioning such as memory, mood, and concentration. Data The data obtained during this sleep study is adequate for interpretation. Certification This sleep study has been reviewed by a board certified sleep medicine physician.
== END 2024-09-29 06:32 | disposition home or self-care (01) ==
LOC: ANHCSM 09:39
PROVIDERS: PCP Nurse Practitioner; Visit Provider Physician Assistant
DX: G47.33 Obstructive sleep apnea (adult) (pediatric) (principal)
CPT/HCPCS: 95811

== ENCOUNTER 2024-10-12 09:00 | Emergency (ER) | payer OTHER, SELFPAY ==
[2024-10-12 09:10] VITALS: BP 121/89; PULSE 104; RESP 16; TEMP 35.8; O2SAT 99
--- NOTE | 2024-10-12 09:25 | ED.EAR ---
HPI - Ear Problem General Chief complaint: Ear Stated complaint: left ear irritation Source: patient Mode of arrival: ambulatory Limitations: no limitations History of Present Illness HPI Narrative: Pt is a 34 y/o male presenting with c/o L. ear irritation. Irritation began 2 days go. He states he uses his fingernails to clean out his excessive ear wax and believes he may have scratched his ear. 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 No recent swimming/submersion of head underwater. No constitutional sx. No additional complaints. Related Data Home Medications ?Medication ?Instructions ?Recorded ?Confirmed ?Last Taken ?Type bupropion HCl 100 mg tablet PO 10/20/20 08/01/24 Unknown History docusate sodium 100 mg capsule PO 10/20/20 08/01/24 Unknown History duloxetine 60 mg capsule,delayed mg PO 10/20/20 08/01/24 Unknown History release estradiol 2 mg tablet mg 10/20/20 08/01/24 Unknown History emtricitabine 200 mg-tenofovir tablet PO 10/12/24 Unknown History alafenamide fumarate 25 mg tablet (Descovy) gabapentin 600 mg tablet mg 10/12/24 Unknown History progesterone micronized 200 mg mg 10/12/24 Unknown History capsule tizanidine 4 mg tablet mg 10/12/24 Unknown History Allergies Allergy/AdvReac Type Severity Reaction Status Date / Time codeine Allergy Intermediate Other Verified 10/12/24 09:11 Penicillins Allergy Unknown RASH Verified 10/12/24 09:11 Review of Systems Review of Systems: CONSTITUTIONAL: Denies body aches, fever, chills, or sweats. EYES: Denies visual changes, redness, or discharge. ENT: Reports L. ear irritation. Denies rhinorrhea, congestion, sore throat CARDIOVASCULAR: Denies chest pain, palpitations, or edema. RESPIRATORY: Denies cough or dyspnea. GASTROINTESTINAL: Denies abdominal pain, nausea, vomiting, or diarrhea. GENITOURINARY: Denies dysuria or hematuria. SKIN: Denies rash, itching, or wounds. MUSCULOSKELETAL: Denies back pain, joint pain, or myalgia. NEUROLOGIC: Denies headache, numbness, tingling, or weakness. PSYCH: Denies depression or anxiety. [facility] Past Medical History Medical History Depression Fibromyalgia Surgical History Surgical History No pertinent past surgical history Social History Social History Smoking status: Never smoker Alcohol intake: current Gender identity (if verbalized by the patient): Female Exam Narrative: GENERAL: Well-appearing, morbidly obese, and in no acute distress. HEAD: Normocephalic, atraumatic. EYES: EOMI. No redness or drainage. Conjunctivae normal. ENT: Mucous membranes pink and moist. Nares clear. No rhinorrhea. TMs normal bilaterally. Throat normal. Uvula midline. Mild edema and cheesy discharge noted to L. auditory canal. Mild L. tragal tenderness. No mastoid tenderness. NECK: Normal AROM. Supple. No lymphadenopathy. CHEST: No respiratory distress. HEART: Regular rate SKIN: Warm, dry, no rash. Capillary refill normal. Normal skin turgor. NEURO: No focal deficits. Alert and oriented x3. Gait steady. PSYCH: Normal affect. No signs of depression or anxiety. Course Course Level of Care: Express Care Visit Vital Signs Vital signs: Vital Signs Temperature 96.4 F L 10/12/24 09:10 Pulse Rate 104 H 10/12/24 09:10 Respiratory Rate 16 10/12/24 09:10 Blood Pressure 121/89 10/12/24 09:10 Pulse Oximetry 99 10/12/24 09:10 Temperature 96.4 F L 10/12/24 09:10 Pulse Rate 104 H 10/12/24 09:10 Respiratory Rate 16 10/12/24 09:10 Blood Pressure 121/89 10/12/24 09:10 Pulse Oximetry 99 10/12/24 09:10 Medical Decision Making Vital Signs Vital Signs: Vital Signs Temperature 96.4 F L 10/12/24 09:10 Pulse Rate 104 H 10/12/24 09:10 Respiratory Rate 16 10/12/24 09:10 Blood Pressure 121/89 10/12/24 09:10 Pulse Oximetry 99 10/12/24 09:10 Temperature 96.4 F L 10/12/24 09:10 Pulse Rate 104 H 10/12/24 09:10 Respiratory Rate 16 10/12/24 09:10 Blood Pressure 121/89 10/12/24 09:10 Pulse Oximetry 99 10/12/24 09:10 Discharge Plan Discharge Clinical Impression: Otitis externa Qualifiers: Otitis externa type: other infective Chronicity: acute Laterality: left Qualified Code(s): H60.392 - Other infective otitis externa, left ear Patient Disposition: Home Condition: Stable Instructions: Antibiotic Form, Swimmer's Ear (AC) Additional Instructions: Go straight to ER should your symptoms become worse or should any new symptoms develop Patient Language: Yoruba Prescriptions: New ofloxacin 0.3 % drops 5 drp LEFT EAR BID 10 Days Qty: 10 0RF No Action gabapentin 600 mg tablet tizanidine 4 mg tablet progesterone micronized 200 mg capsule Descovy 200-25 mg tablet PO bupropion HCl 100 mg tablet PO docusate sodium 100 mg capsule PO estradiol 2 mg tablet duloxetine 60 mg capsule,delayed release(DR/EC) PO Follow-up/Referrals: Fran Elkins MD [Primary Care Provider] - 10/12/24 Time of Disposition: 09:28
== END 2024-10-12 09:29 | disposition home or self-care (01) ==
PROVIDERS: Emergency Provider Registered Nurse; PCP Internal Medicine
DX: H60.392 Other infective otitis externa, left ear (principal); M79.7 Fibromyalgia; F32.A Depression, unspecified
CPT/HCPCS: 99213; G0463